=== PATIENT | male | born 1960 | race Caucasian/White ===

== ENCOUNTER 2020-08-16 08:22 | Inpatient (IN) | payer OTHER ==
[~2020-08-16] VITALS: Ht 172.7 cm; Wt 95.4 kg
[2021-07-03 09:57] LABS: HEMATOCRIT 49.9 % (42.0-52.0); HEMOGLOBIN 16.4 g/dl (13.5-18.0); MEAN CELL VOLUME 89 fl (80.0-100.0); MEAN CORPUSCULAR HEMOGLOBIN 29 pg (27.0-31.0); MEAN CORPUSCULAR HGB CONC 33 g/dl (33.0-37.0); MEAN PLATELET VOLUME 10.4 fl (7.4-10.4); PLATELET COUNT 188 K/mm3 (130-400); RED BLOOD COUNT 5.63 M/mm3 (4.20-5.60); REDCELL DISTRIBUTION WIDTH-CV 13.2 % (11.5-14.5)
[2021-07-03 10:16] LABS: CALCIUM 10.1 mg/dL (8.4-10.2); CREATININE, serum 0.97 mg/dL (0.72-1.25); POTASSIUM 4.6 mmol/L (3.5-4.5); TOTAL PROTEIN 6.9 gm/dL (6.2-8.1)
[2021-07-04] VITALS (11 sets, daily range): BP systolic 104–137; BP diastolic 56–84; PULSE 58–86; TEMP 97.4–98
[2021-07-04] MEDS ORDERED: TIROSINT150 MC1 PO (06:55)
[2021-07-04] MEDS ORDERED: CYTOMEL 5MC5 MCG/TAB PO (06:57)
[2021-07-04] MEDS ORDERED: LIPITOR 80MG80 MG PO (06:58)
[2021-07-04] MEDS ORDERED: PRINIVIL5 MG PO (06:59)
[2021-07-04] MEDS ORDERED: ZYLOPRIM 300MG300 MG PO (07:00)
[2021-07-04] MEDS ORDERED: SINGULAIR 110 MG/TAB PO (07:01)
[2021-07-04] MEDS ORDERED: TOPROL XL 25MG25 MG PO (07:02)
[2021-07-04] MEDS ORDERED: FLOMAX 0.40.4 MG/CAP PO (07:03)
[2021-07-04] MEDS ORDERED: BRILINTA90 MG PO (07:03)
[2021-07-04] MEDS ORDERED: ULTRAM 50MG TAB50 MG PO (07:04)
[2021-07-04] MEDS ORDERED: ZYRTEC 10MG10 MG PO (07:05)
[2021-07-04] MEDS ORDERED: PEPCID 20MG TAB20 MG PO (07:05)
[2021-07-04] MEDS ORDERED: VITAMINC1000TA PO (07:06)
[2021-07-04] MEDS ORDERED: THE MEDICINE S200 M2 PO (07:06)
[2021-07-04] MEDS ORDERED: PHARMASSURE ZIN50 MG PO (07:07)
[2021-07-04] MEDS ORDERED: B COMPLEX #11 TA1 PO (07:07)
[2021-07-04] MEDS ORDERED: VITAMIN B12 1541 TAB PO (07:08)
[2021-07-04] MEDS ORDERED: MILK THISTLE500 M2 PO (07:09)
[2021-07-04] MEDS ORDERED: TURMERIC500 MG PO (07:10)
[2021-07-04] MEDS ORDERED: VITAMIND3 5000 PO (07:11)
--- NOTE | 2021-07-04 12:30 | NUR ---
Patient recieved post op from [facility] in [place]. Patient to room 323. Alert. Complaints of abdominal pain to the left side. Offered cold or warm pack, no interest. Patient on bedrest at this time due to partial nephrectomy. Patient medicated with zofran for complaints of nausea & he is medicated for pain as ordered. Scds Ble. Kosta drain compression. Abdomen rounded, incisions site edges well approximated. Ivf per orders. His at bedside.
[2021-07-04 12:54] LABS: HEMOGLOBIN 15.1 g/dl (13.5-18.0); MEAN CELL VOLUME 87 fl (80.0-100.0); MEAN CORPUSCULAR HEMOGLOBIN 29 pg (27.0-31.0); MEAN CORPUSCULAR HGB CONC 34 g/dl (33.0-37.0); MEAN PLATELET VOLUME 10.3 fl (7.4-10.4); PLATELET COUNT 154 K/mm3 (130-400); RED BLOOD COUNT 5.16 M/mm3 (4.20-5.60)
[2021-07-04 13:08] LABS: CALCIUM 9.2 mg/dL (8.4-10.2); CREATININE, serum 1.3 mg/dL (0.72-1.25); POTASSIUM 4.1 mmol/L (3.5-4.5)
[2021-07-04 13:21] LABS: BAND 4 % (0-10); LYMPHOCYTE 3 % (20.0-51.0); NEUTROPHILS 92 % (42.0-75.2); PLATELET ESTIMATE NORMAL (NORMAL)
--- NOTE | 2021-07-04 14:43 | NUR ---
Patient still having complaints of pain. Reports he only was able to rest momentairly. Second tab of roxicodone given with jello. vital remain stable. Milton goins.
--- NOTE | 2021-07-04 17:55 | NUR ---
Patient resting in bed. he had an episode of emesis. pain elevated after. dose of iv pain medication given. minimal appetite. hopkins to dd with adequate output. Kosta drain with bloody output. Elizadmen rounded. His at bedside.
[2021-07-05 00:04] VITALS: BP 150/73; PULSE 79; TEMP 98
[2021-07-05 03:26] VITALS: BP 125/63; PULSE 59; TEMP 98
--- NOTE | 2021-07-05 05:32 | NUR ---
PT c/o severe pain throughout this shift, morphine given IV x2, pt would only take oxycodone after zofran dose at 0030 d/t previous episode of n/v, cont. to c/o pain so followed with dose of morphine @0105. pt requested O2 on for comfort, sats 98% on RA, RT placed NC @2L. pt then able to sleep. hopkins draining yellow urine, ziggy drain with bloody drainage, IVF @75cc/hr per piv.
[2021-07-05 06:51] LABS: BASO % 0.1 % (0.0-2.0); GRAN % 84.2 % (42.2-75.2); HEMATOCRIT 46.7 % (42.0-52.0); HEMOGLOBIN 14.8 g/dl (13.5-18.0); LYMPH % 7.1 % (20.0-51.0); MEAN CELL VOLUME 91 fl (80.0-100.0); MEAN CORPUSCULAR HEMOGLOBIN 29 pg (27.0-31.0); MEAN CORPUSCULAR HGB CONC 32 g/dl (33.0-37.0); MONO # 1.2 K/mm3 (0.1-0.6); MONO % 8.2 % (1.7-9.3); PLATELET COUNT 171 K/mm3 (130-400); RED BLOOD COUNT 5.12 M/mm3 (4.20-5.60); REDCELL DISTRIBUTION WIDTH-CV 13.1 % (11.5-14.5)
[2021-07-05 07:28] LABS: CALCIUM 9.4 mg/dL (8.4-10.2); CREATININE, serum 1.27 mg/dL (0.72-1.25); POTASSIUM 4.3 mmol/L (3.5-4.5)
[2021-07-05 07:46] VITALS: BP 112/60; PULSE 56; TEMP 98
--- NOTE | 2021-07-05 08:08 | NUR ---
Patient up and ambulated in hallways this am. Hemoglobin stable in this am. Pain continues to be elevated. He reports nausea improved at this time. He denies passing flatus. abdomen distented. bowels hypoactive. lap site incisions edges well approximated. Kosta drain to compression. ivf per orders. Eras protocol followed. Will continue to monitor.
[2021-07-05] MEDS ORDERED: NORCO 325 MG-51 TAB PO (09:08)
[2021-07-05] MEDS ORDERED: COLACE 100100 MG/CAP PO (09:08)
--- NOTE | 2021-07-05 09:25 | NUR ---
rounded. Orders obtained. Schmidt DC per orders. Kosta drain DC per orders. Patient tolerated both fairly well.
--- NOTE | 2021-07-05 11:03 | NUR ---
Patient up ambulating the halls with spouse. feeling better since drain has been removed
[2021-07-05 11:28] VITALS: BP 114/72; PULSE 57; TEMP 98.1
--- NOTE | 2021-07-05 11:40 | NUR ---
Initial visit; Patient and his thanked Banking Services Advisor for stopping and offering God's blessings.
--- NOTE | 2021-07-05 12:40 | NUR ---
SW met with patient to complete intake. Patient stated that he lives in [place], [place] with his spouse Vanessa [phone] who was present during intake. Patient states that he does not utilize DME and is independent with ADL's. Patient states that his PCP is Dr. Rice at [facility], pharmacy is [facility] [place]. Patient states that he does not have a DPOA/HC, but would like to appoint his . Documentation presented, reviewed, and completed. Patient signed documentation with staff witness present and copies made for patient records. Patient states that his plan is to return [place]. [place] Plan: home with spouse
--- NOTE | 2021-07-05 13:49 | NUR ---
Patient up ambulating the halls independenlty. Tolerated lunch. Will montior
[2021-07-05 15:36] VITALS: BP 106/57; PULSE 63; TEMP 98.6
--- NOTE | 2021-07-05 18:00 | NUR ---
Patient ready for discharge. He was able to void 875mls. He reports passing flatus. He reports feeling ready to go home. called & discharge orders obtained. Int Dc. Patient given all discharge education. 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 Home med list reviewed, he is aware to continue to hold Brilinta & baby ASA. He has follow up scheduled for next week with urology. We discussed activity & diet restrictions. Insision cares & signs & syptoms to call doctor reviewed. Patient and his deny questions of concerns. Patient ambulated out with all belongings.
== END 2021-07-05 18:00 | disposition home or self-care (01) | DRG 661 ==
LOC: SURG 09-24 07:30 → INPTSU 07-04 05:21 → SURG 07-04 07:30
PROVIDERS: ADMIT Urology
PROC: 8E0W4CZ Robotic Assisted Procedure of Trunk Region, Percutaneous Endoscopic Approach (ICD-10-PCS; 2021-07-04)
PROC: 0TB14ZZ Excision of Left Kidney, Percutaneous Endoscopic Approach (ICD-10-PCS; principal; 2021-07-04 07:30)
DX: N28.89 Other specified disorders of kidney and ureter (principal)
CPT/HCPCS: A4314; J0690; J1100; J1170; J2250; J2270; J2405; J2550; J2704; J2710; J2795; J3010; J7120

== ENCOUNTER → 2021-01-23 | Outpatient (CLI) | payer OTHER | LOC: COL.RAD 09:33 | DX: N28.1 Cyst of kidney, acquired (principal) ==

== ENCOUNTER → 2021-04-16 | Outpatient (CLI) | payer OTHER | LOC: COL.RAD 07:41 | DX: Z01.812 Encounter for preprocedural laboratory examination (principal); K80.20 Calculus of gallbladder without cholecystitis without obstruction; N20.0 Calculus of kidney; N28.1 Cyst of kidney, acquired | CPT/HCPCS: Q9967 ==